=== PATIENT | male | born 1955 | race Caucasian/White ===

== ENCOUNTER 2021-02-15 12:47 | Inpatient (IN) | payer MEDICARE, OTHER ==
[~2021-02-15] VITALS: Ht 177.8 cm; Wt 115.7 kg
[~2021-02-15 12:47] MED LIST: ASPIRIN81 MG PO; ATENOLOL50 MG PO; LACTULOSE20 GM/30 M PO; METHOCARBAMOL750 MG PO; NORTRIPTYLINE H75 MG PO; OXYBUTYNIN CHLOR5 MG PO; PHENYTOIN SODI100 MG PO; SIMVASTATIN40 MG PO
[2021-02-15 13:31] LABS: BASOPHILS % 0.4 % (0.0-1.0); EOSINOPHILS # (AUTO) 0.3 (0.0-0.4); EOSINOPHILS % 2.6 % (0.0-6.0); HEMATOCRIT 40.7 % (38.2-49.6); HEMOGLOBIN 12.5 g/dL (14.0-18.0); LYMPHOCYTES # (AUTO) 2.6 (1.0-3.2); MEAN CORPUSCULAR HEMOGLOBIN 25.7 pg (28-32); MEAN CORPUSCULAR HGB CONC 30.7 g/dL (31-35); MEAN CORPUSCULAR VOLUME 83.6 fL (81-99); MONOCYTES # (AUTO) 1.5 (0.2-0.8); MONOCYTES % 13.3 % (4.4-11.3); NEUTROPHILS # (AUTO) 6.8 (2.1-6.9); NEUTROPHILS % 60.3 % (38.7-80.0); PLATELET COUNT 332 x10e3/uL (140-360); RED BLOOD COUNT 4.87 x10e6/uL (4.3-5.7); RED CELL DISTRIBUTION WIDTH 14.4 % (11.7-14.4)
[2021-02-15 13:45] LABS: ALANINE AMINOTRANSFERASE 11 IU/L (0-55); ALBUMIN 3.6 g/dL (3.5-5.0); ALBUMIN/GLOBULIN RATIO 0.8 (0.8-2.0); ALKALINE PHOSPHATASE 121 IU/L (40-150); BLOOD UREA NITROGEN 9 mg/dL (7-26); BUN/CREATININE RATIO 10 (6-25); CARBON DIOXIDE 26 mmol/L (22-29); CHLORIDE 105 mmol/L (98-107); CREATININE, SERUM 0.93 mg/dL (0.72-1.25); EST GLOMERULAR FILTRATION RATE > 60 ML/MIN (60-); GLUCOSE 115 mg/dL (74-118); SODIUM 140 mmol/L (136-145)
[2021-02-15] MEDS ORDERED: IOPAMIDOL 370 MG/ML 200 ML INFUS..BTL INJ ONE (14:15)
[2021-02-15] MEDS ORDERED: SODIUM CHLORIDE 0.9% 50ML 50 ML ONE (14:15)
[2021-02-15] MEDS ORDERED: DIATRIZOATE MEGL/DIATRIZOA SOD 30 ML BTL PO ONE (14:15)
[2021-02-15 14:16] LABS: CLARITY,URINE SL CLOUDY (CLEAR); COLOR,URINE YELLOW (YELLOW); KETONES,URINE NEGATIVE (NEGATIVE); LEUKOCYTE ESTERASE ,URINE SMALL (NEGATIVE); NITRITE,URINE POSITIVE (NEGATIVE); PROTEIN,URINE DIPSTICK NEGATIVE (NEGATIVE); URINE UROBILINOGEN 0.2 mg/dL (0.2 - 1)
[2021-02-15 14:26] LABS: AMORPHOUS SEDIMENT,URINE FEW (FEW); BACTERIA,URINE MANY /HPF; RBC,URINE 0-5 /HPF (0-5)
[2021-02-15] MEDS ORDERED: CEFTRIAXONE SOD 1 GM/50 ML BAG IV STA (14:36)
[2021-02-15] MEDS ORDERED: CEFTRIAXONE SOD 1 GM in SODIUM CHLORIDE 0.9% 50ML 50 ML IV STA (14:41)
[2021-02-15] MEDS ORDERED: LANSOPRAZOLE30 MG GT (15:05)
[2021-02-15] MEDS ORDERED: FLEET ENEMA133 ML PR (15:05)
[2021-02-15] MEDS ORDERED: MIRALAX17 GM PO (15:05)
[2021-02-15] MEDS ORDERED: LORATADINE10 MG GT (15:05)
[2021-02-15] MEDS ORDERED: ONDANSETRON2 MG/1 ML IV (15:05)
[2021-02-15] MEDS ORDERED: [UNRECOGNIZED DRUG - OTHER] OP (15:05)
[2021-02-15] MEDS ORDERED: ASPIRIN 81 MG CHEW TAB PO ONE (15:45)
[2021-02-15 16:11] LABS: CREATINE KINASE 28 IU/L (30-200)
[2021-02-15] MEDS ORDERED: ATORVASTATIN CA80 MG GT (16:22)
[2021-02-15] MEDS ORDERED: MAALOX MAXIMUM355 ML PO (16:22)
[2021-02-15] MEDS ORDERED: VIMPAT10 MG/1 ML GT (16:22)
[2021-02-15] MEDS ORDERED: ELIQUIS5 MG PO (16:22)
[2021-02-15] MEDS ORDERED: APLISOL5 TUB UNIT (16:22)
[2021-02-15] MEDS ORDERED: FLANDERS BUTTOC30 GM TOP (16:22)
[2021-02-15] MEDS ORDERED: PEPCID20 MG GT (16:22)
[2021-02-15] MEDS ORDERED: GUAIFENESI100 MG/5 M GT (16:22)
[2021-02-15] MEDS ORDERED: CYCLOBENZAPRINE10 MG GT (16:22)
[2021-02-15] MEDS: MORPHINE SULFATE INJ 4 MG/ML INJ 1ML IV PRN ×2 (16:28→22:54)
[2021-02-15 17:30] VITALS: BP 113/70
[2021-02-15 18:08] VITALS: BP 113/70
[2021-02-15] MEDS ORDERED: SUCRALFATE1 GM PEG (18:32)
[2021-02-15] MEDS ORDERED: COLACE100 MG/10 PEG (18:32)
[2021-02-15] MEDS ORDERED: TENORMIN50 MG PEG (18:32)
[2021-02-15] MEDS ORDERED: ONDANSETRON HCL4 MG PEG (18:32)
[2021-02-15] MEDS ORDERED: GLACIAL ACETIC A1 ML UR (18:32)
[2021-02-15] MEDS ORDERED: ACETAMINOPHEN325 M1 PEG (18:32)
[2021-02-15] MEDS ORDERED: CRANBERRY425 MG PEG (18:32)
[2021-02-15] MEDS ORDERED: ELDERTONIC473 ML PEG (18:32)
[2021-02-15] MEDS ORDERED: ELIQUIS5 MG PEG (18:37)
[2021-02-15] MEDS ORDERED: OXYBUTYNIN CHLOR5 MG PEG (18:37)
[2021-02-15] MEDS ORDERED: LACTULOSE20 GM/30 M PEG (18:37)
[2021-02-15] MEDS ORDERED: SIMVASTATIN20 MG PEG (18:37)
[2021-02-15] MEDS ORDERED: MIRALAX17 GM PEG (18:37)
[2021-02-15 19:40] VITALS: BP 143/85
[2021-02-15] MEDS ORDERED: SYSTANE1 EACH OU (20:25)
[2021-02-15 20:32] VITALS: BP 143/85
[2021-02-15 20:44] LABS: INR 1.13; PROTHROMBIN TIME 15.2 seconds (11.9-14.5)
[2021-02-15 20:46] LABS: PARTIAL THROMBOPLASTIN TIME 37.6 seconds (23.8-35.5)
[2021-02-15 20:51] LABS: CREATINE KINASE 26 IU/L (30-200)
[2021-02-15] MEDS ORDERED: ACETAMINOPHEN 325 MG TAB PO PRN (22:00)
[2021-02-15] MEDS ORDERED: POLYETHYLENE GLYCOL 3350 17 GM PACK PO PRN (22:00)
[2021-02-15] MEDS ORDERED: EYELID CLEANSER COMBINATION OU PRN (22:00)
[2021-02-15] MEDS ORDERED: SOD PHOSPHATE/SOD BIPHOSPHATE ENEMA 132 ML BTL PR PRN (22:00)
[2021-02-15] MEDS ORDERED: ONDANSETRON HCL 4 MG ORAL DISINTEGRATING TAB PO PRN (22:30)
[2021-02-16] VITALS (8 sets, daily range): BP systolic 111–136; BP diastolic 31–99
[2021-02-16 06:06] LABS: BASOPHILS % 0.4 % (0.0-1.0); EOSINOPHILS # (AUTO) 0.3 (0.0-0.4); EOSINOPHILS % 3.4 % (0.0-6.0); HEMATOCRIT 38.1 % (38.2-49.6); HEMOGLOBIN 11.7 g/dL (14.0-18.0); LYMPHOCYTES # (AUTO) 2.2 (1.0-3.2); LYMPHOCYTES % 23.6 % (18.0-39.1); MEAN CORPUSCULAR HEMOGLOBIN 25.8 pg (28-32); MEAN CORPUSCULAR HGB CONC 30.7 g/dL (31-35); MEAN CORPUSCULAR VOLUME 83.9 fL (81-99); MONOCYTES # (AUTO) 1.6 (0.2-0.8); MONOCYTES % 16.8 % (4.4-11.3); NEUTROPHILS # (AUTO) 5.2 (2.1-6.9); NEUTROPHILS % 55.5 % (38.7-80.0); PLATELET COUNT 288 x10e3/uL (140-360); RED BLOOD COUNT 4.54 x10e6/uL (4.3-5.7); RED CELL DISTRIBUTION WIDTH 14.5 % (11.7-14.4)
[2021-02-16 06:24] LABS: ALANINE AMINOTRANSFERASE 10 IU/L (0-55); ALBUMIN 3.2 g/dL (3.5-5.0); ALBUMIN/GLOBULIN RATIO 0.8 (0.8-2.0); ALKALINE PHOSPHATASE 100 IU/L (40-150); ANION GAP 13.1 mmol/L (8-16); BLOOD UREA NITROGEN 11 mg/dL (7-26); BUN/CREATININE RATIO 12 (6-25); CALCIUM 8.5 mg/dL (8.4-10.2); CARBON DIOXIDE 26 mmol/L (22-29); CHLORIDE 105 mmol/L (98-107); CREATININE, SERUM 0.89 mg/dL (0.72-1.25); EST GLOMERULAR FILTRATION RATE > 60 ML/MIN (60-); GLUCOSE 119 mg/dL (74-118); POTASSIUM 4.1 mmol/L (3.5-5.1); SODIUM 140 mmol/L (136-145)
[2021-02-16 06:53] LABS: CREATINE KINASE MB 0.6 ng/mL (0-5.0)
[2021-02-16] MEDS: PANTOPRAZOLE SOD 40 MG TABEC PO SCH (07:30)
[2021-02-16] MEDS: LORATADINE 10 MG TAB PO SCH (09:00)
[2021-02-16] MEDS: LACOSAMIDE 50 MG TABLET PO SCH ×2 (09:00→17:00)
[2021-02-16] MEDS: DOCUSATE SODIUM LIQD 100 MG/10 ML UDC PO SCH (09:00)
[2021-02-16] MEDS: MULTIVITAMINS/MINERALS TAB PO SCH (09:00)
[2021-02-16] MEDS: ATENOLOL 50 MG TAB PO SCH (09:00)
[2021-02-16] MEDS: SUCRALFATE 1 GM TAB PO SCH ×2 (09:00→17:00)
[2021-02-16] MEDS: OXYBUTYNIN CHLORIDE 5 MG TAB PO SCH ×2 (09:00→17:00)
[2021-02-16] MEDS: ZINC OXIDE / BALSAM PERU 30 GM TUBE TOP SCH ×3 (12:04→21:00)
[2021-02-16] MEDS ORDERED: PROPOFOL IV EMULSION 10 MG/ML 20 ML VIAL ONE (12:41)
[2021-02-16] MEDS ORDERED: LIDOCAINE HCL 2% LOCAL INJ 5 ML SDV VIAL INJ ONE (12:41)
[2021-02-16] MEDS: MORPHINE SULFATE INJ 4 MG/ML INJ 1ML IV PRN ×2 (14:05→21:30)
[2021-02-16 14:40] LABS: COLOR,URINE STRAW (YELLOW)
[2021-02-16 14:41] LABS: CLARITY,URINE CLOUDY (CLEAR); KETONES,URINE TRACE (NEGATIVE); LEUKOCYTE ESTERASE ,URINE 1+ (NEGATIVE); NITRITE,URINE POSITIVE (NEGATIVE); PROTEIN,URINE DIPSTICK NEGATIVE (NEGATIVE); URINE UROBILINOGEN 0.2 mg/dL (0.2 - 1)
[2021-02-16 14:45] LABS: BACTERIA,URINE MANY /HPF; RBC,URINE >50 /HPF (0-5)
[2021-02-16 14:46] LABS: EPITHELIAL CELLS,URINE FEW /LPF; MUCUS,URINE MANY (RARE)
[2021-02-16] MEDS ORDERED: PIPER-TAZ 3.375 GM 50 ML IV STA (20:19)
[2021-02-16] MEDS ORDERED: PIPERACILLIN/TAZOBAC 3.375 GM in SODIUM CHLORIDE 0.9% 50ML 50 ML IV ONE (20:30)
[2021-02-16] MEDS ORDERED: PIPERACILLIN/TAZOBAC 3.375 GM VIAL ONE (20:36)
[2021-02-16] MEDS ORDERED: SODIUM CHLORIDE 0.9% 50ML 50 ML ONE (20:37)
[2021-02-16] MEDS: SIMVASTATIN 20 MG TAB PO SCH (21:28)
[2021-02-17] VITALS (9 sets, daily range): BP systolic 93–130; BP diastolic 66–78
[2021-02-17] MEDS ORDERED: PIPER-TAZ 3.375 GM 50 ML IV SCH
[2021-02-17] MEDS: PIPERACILLIN/TAZOBAC 3.375 GM in SODIUM CHLORIDE 0.9% 50ML 50 ML IV SCH ×5 (00:30→23:39)
[2021-02-17] MEDS: MORPHINE SULFATE INJ 4 MG/ML INJ 1ML IV PRN ×2 (05:40→11:15)
[2021-02-17] MEDS: PANTOPRAZOLE SOD 40 MG TABEC PO SCH (08:30)
[2021-02-17] MEDS: DOCUSATE SODIUM LIQD 100 MG/10 ML UDC PO SCH (08:30)
[2021-02-17] MEDS: LORATADINE 10 MG TAB PO SCH (08:30)
[2021-02-17] MEDS: SUCRALFATE 1 GM TAB PO SCH ×2 (08:30→17:51)
[2021-02-17] MEDS: OXYBUTYNIN CHLORIDE 5 MG TAB PO SCH ×2 (08:30→17:51)
[2021-02-17] MEDS: ATENOLOL 50 MG TAB PO SCH (08:31)
[2021-02-17] MEDS: MULTIVITAMINS/MINERALS TAB PO SCH (08:31)
[2021-02-17] MEDS: ZINC OXIDE / BALSAM PERU 30 GM TUBE TOP SCH ×3 (08:32→20:59)
[2021-02-17] MEDS: LACOSAMIDE 50 MG TABLET PO SCH ×2 (08:32→17:51)
[2021-02-17] MEDS: SIMVASTATIN 20 MG TAB PO SCH (20:59)
[2021-02-18] VITALS: BP 119/70
[2021-02-18] MEDS: MORPHINE SULFATE INJ 4 MG/ML INJ 1ML IV PRN (03:12)
[2021-02-18 04:24] VITALS: BP 119/65
[2021-02-18] MEDS: PIPERACILLIN/TAZOBAC 3.375 GM in SODIUM CHLORIDE 0.9% 50ML 50 ML IV SCH (05:45)
[2021-02-18 07:50] VITALS: BP 103/68
[2021-02-18] MEDS: SUCRALFATE 1 GM TAB PO SCH (08:44)
[2021-02-18] MEDS: DOCUSATE SODIUM LIQD 100 MG/10 ML UDC PO SCH (08:44)
[2021-02-18] MEDS: PANTOPRAZOLE SOD 40 MG TABEC PO SCH (08:44)
[2021-02-18] MEDS: LORATADINE 10 MG TAB PO SCH (08:44)
[2021-02-18] MEDS: OXYBUTYNIN CHLORIDE 5 MG TAB PO SCH (08:45)
[2021-02-18] MEDS: MULTIVITAMINS/MINERALS TAB PO SCH (08:45)
[2021-02-18] MEDS: ZINC OXIDE / BALSAM PERU 30 GM TUBE TOP SCH (08:46)
[2021-02-18] MEDS: LACOSAMIDE 50 MG TABLET PO SCH (08:46)
[2021-02-18] MEDS: ATENOLOL 50 MG TAB PO SCH (08:46)
[2021-02-18 09:17] VITALS: BP 103/68
[2021-02-18 11:43] VITALS: BP 103/70
[2021-02-18] MEDS ORDERED: CEFTRIAXONE SOD 1 GM in SODIUM CHLORIDE 0.9% 50ML 50 ML IV SCH (14:00)
[2021-02-19] MEDS ORDERED: CEFTRIAXONE SOD 1 GM/50 ML BAG IV SCH (09:00)
== END 2021-02-18 14:40 | DRG 394 ==
LOC: ER 14:31 → ERHOLD 14:44 → MED/SURG3 17:16
PROVIDERS: ADMIT Internal Medicine; ATTEND Internal Medicine
PROC: 0DH68UZ Insertion of Feeding Device into Stomach, Via Natural or Artificial Opening Endoscopic (ICD-10-PCS; 2021-02-16)
PROC: 0DP68UZ Removal of Feeding Device from Stomach, Via Natural or Artificial Opening Endoscopic (ICD-10-PCS; principal; 2021-02-16 16:00)
DX: K94.23 Gastrostomy malfunction (principal); K31.6 Fistula of stomach and duodenum; I69.354 Hemiplegia and hemiparesis following cerebral infarction affecting left non-dominant side; N39.0 Urinary tract infection, site not specified; I10 Essential (primary) hypertension; G40.909 Epilepsy, unspecified, not intractable, without status epilepticus; S31.31XA Laceration without foreign body of scrotum and testes, initial encounter; B96.20 Unspecified Escherichia coli [E. coli] as the cause of diseases classified elsewhere; I69.320 Aphasia following cerebral infarction; Z86.718 Personal history of other venous thrombosis and embolism; Z20.822 Contact with and (suspected) exposure to COVID-19; D64.9 Anemia, unspecified; E66.9 Obesity, unspecified; Z68.36 Body mass index [BMI] 36.0-36.9, adult; N31.9 Neuromuscular dysfunction of bladder, unspecified; Z87.820 Personal history of traumatic brain injury; K56.41 Fecal impaction
CPT/HCPCS: 36415; 43246; 74177; 76870; 80053; 81001; 82550; 82553; 83690; 84484; 85025; 85610; 85730; 87086; 87186; 93976; 99251; 99284; J0696; J2001; J2270; J2543; Q9967; U0002